=== PATIENT | male | born 1950 | race Caucasian/White ===

== ENCOUNTER 2018-10-24 14:08 | Observation (INO) ==
[2018-10-24] MEDS ORDERED: Ondansetron 4 MG/2 ML VIAL IVP PRN (17:15)
[2018-10-24] MEDS ORDERED: Naloxone 0.4 MG/ML INJ IVP PRN (17:15)
[2018-10-24] MEDS ORDERED: *HR* OxyCODONE Immed Rel 5 MG TABLET PO PRN (17:15)
[2018-10-24] MEDS ORDERED: Acetaminophen 325 MG TABLET PO PRN (17:15)
[2018-10-24] MEDS ORDERED: *HR* HYDROcodone/Acet 5/325 mg TABLET PO PRN (17:15)
--- NOTE | 2018-10-24 17:33 | Internal Med History&Physical ---
Date of Encounter: 10/24/18 Time of Encounter: 16:50 Internal Medicine - H&P: HPI Chief complaint: I was sent here from [facility] Admitted From: Direct Admit Plans for Post Hospital Care: Home History of present illness: Mr. Marley is a 67 year old male past medical history significant for coronary artery disease status post PCI and stenting, hypertension GERD hyperlipidemia who was sent here to be admitted after he presented at [facility] with complaints of acute left flank pain and back pain. According to the subjective information provided today for the admission, the patient has left nephrolithiasis which was diagnosed at [facility] and that the physicians there have contacted the urologist Dr. Soriano. Patient stated that yesterday he felt nauseous and was not quite himself all day and at about 5 AM this morning he was awakened by these acute left flank and back pain which he described as sharp persistent and that the pain subsequently radiated across his entire abdomen has he presented at [facility]. He currently denies any flank or abdominal pain. He denies fever or chills hematuria or prior history of nephrolithiasis. His only complaint during the encounter was being very hungry stating he has been declined eating all day and he is requesting to be fed. Records from [facility] has been requested regarding his visit from yesterday or today Past Med Surg Social Fam HX - Past Medical History Attestation: Yes The following information was validated with the patient. Medical history: coronary artery disease, GERD, hyperlipidemia, hypertension - Past Surgical History Surgical History: angioplasty/stent, appendectomy, arthroscopy Additional surgical history: Excision of the left hand cyst, abdominal surgery for a polypectomy - Social History Smoking Status: Never smoker Smokeless Tobacco Status: No Alcohol use: rarely (quit 1.5 years ago) Current living situation: Home - Independent Activity Level: Independent ambulation - Family History Father Hx Family Neurologic Disorders: Yes (Alzheimer's dementia, stroke) Mother Hx Family Endocrine Disorder: Yes (Diabetes) Internal Medicine - H&P: Meds Allergy/AdvReac Type Severity Reaction Status Date / Time No Known Allergies Allergy Unverified 11/19/14 13:44 All Systems PM: A 10-system review of systems was performed and is negative for pertinent findings except as documented above in the HPI. Review of systems: GENERAL: Denies fever, chills, fatigue or night sweats. DERMATOLOGIC: Denies itch, rash or lesions HEENT: Denies headache, blurriness, diplopia or decreased visual acuity, ear pain, tinnitus, rhinorrhea, sinus tenderness or sore throat RESPIRATORY: Denies SOB, cough, hemoptysis or pleuritic chest pain CARDIOVASCULAR: Denies chest pain, LE edema, palpitation or syncope GASTRO INTESTINAL: Denies cramps, nausea/vomiting, diarrhea or constipation, melena MUSCULOSKELATAL: Denies muscle pain/weakness, joint tenderness/pain or swelling PSYCH: Denies worsening anxiety, or depression NEURO: Denies vertigo, dizziness, or ataxia GENITURINARY: Denies dysuria, nocturia or urinary incontinence - Constitutional Exam: GENERAL: Obese male NAD, A&O x3, pleasant and conversant SKIN: No skin lesions or rashes, non-jaundiced EYES: EOMI, PERRLA, no sclera icterus HENT: Head atraumatic, no facial asymmetry, frontal and maxillary sinus non- tender, normal hearing, oropharynx and mucosa moist and without any exudates NECK: No cervical lymphadenopathy, trachea midline, thyroid is palpable does not appear enlarged LUNGS: vesicular breath sounds, clear to auscultation, no wheeze, rhonchi, rales or crackles. Non labored respirations HEART: Normal rate and rhythm, no murmurs or rubs ABDOMEN: soft, non-tender, non-distended, bowel sounds x 4 normoactive, no costovertebral angle tenderness EXTRMITIES: No LE asymmetry, No LE edema, pedal pulses 1+ and radial pulses 2 + and equal bilaterally NEURO: Speech and comprehension appears intact. . PSYCH: Cooperative, non- anxious or irritable, mood and affect is appropriate - Assessment and Plan (1) Left nephrolithiasis Current Visit: Yes Status: Acute Assessment and plan: Per information provided by the patient he was diagnosed with left nephrolithiasis at [facility]. He denies any hematuria fevers or chills. Currently denies any pain physical exam was unrevealing with no costovertebral angle tenderness. We will obtain a UA and attempt to request records from [facility], before any further diagnostic imaging is performed. Per parikh bjective information the urology is Dr. Soriano has been notified by the physicians from [facility]. will place a courtesy consult. Patient is requesting to be fed. He has been denied food all day. We will make nothing by mouth after midnight for possible urological intervention tomorrow (2) CAD (coronary artery disease) Current Visit: Yes Status: Acute Assessment and plan: Currently denies any chest pain once his med rec is done we will continue home medication Qualifiers: Coronary Disease-Associated Artery/Lesion type: [place] artery Associated angina: without angina Qualified Code(s): I25.10 - Atherosclerotic heart disease of [place] coronary artery without angina pectoris (3) Hyperlipidemia Current Visit: Yes Status: Acute Assessment and plan: We will resume home statin therapy once med rec is done Qualifiers: Hyperlipidemia type: mixed hyperlipidemia Qualified Code(s): E78.2 - Mixed hyperlipidemia (4) GERD (gastroesophageal reflux disease) Current Visit: Yes Status: Acute Assessment and plan: We will resume home PPI therapy once med rec is done Qualifiers: Esophagitis presence: without esophagitis Qualified Code(s): K21.9 - Gastro-esophageal reflux disease without esophagitis (5) Hypertension Current Visit: Yes Status: Acute Assessment and plan: We will monitor vitals every 4 and resume home antihypertensive med rec is done Qualifiers: Hypertension type: essential hypertension Qualified Code(s): I10 - Essential (primary) hypertension (6) DVT prophylaxis Current Visit: Yes Status: Acute Assessment and plan: SCDs since patient might be considered for urological intervention - Time Spent With Patient Total time spent is greater than 50% in coordination of care (as documented) at patient's floor/unit and/or counseling patient:45 mins
[2018-10-24] MEDS: Ringers Solution, Lactated 1,000 ML IVC SCH (18:03)
[2018-10-24 18:05] LABS: Basophils % 0.1 %; Eosinophils % 0.2 %; Hematocrit 43.1 % (37.5-50.1); Hemoglobin 14.2 g/dL (12.9-16.9); Immature Granulocytes % 0.3 % (0-4); Lymphocytes # 1.5 K/mcL (0.6-4.6); Mean Corpuscular HGB Conc 32.9 g/dL (31.6-35.5); Mean Corpuscular Hemoglobin 27.3 pg (28.0-33.3); Mean Corpuscular Volume 82.7 fL (83.0-100.0); Mean Platelet Volume 10.6 fL (9.4-12.4); Monocytes # 0.9 K/mcL (0.0-1.3); Monocytes % 9.5 %; Neutrophils # 7.2 K/mcL (1.6-8.9); Platelet Count 294 K/mcL (140-400); Red Blood Count 5.21 M/mcL (4.19-5.50); Red Cell Distribution Width 13.2 % (11.5-14.5); Segmented Neutrophils % 74.9 %; White Blood Count 9.6 K/mcL (4.3-11.1)
[2018-10-24 18:12] LABS: INR 1.1; Prothrombin Time 12.7 Seconds (9.4-12.1)
[2018-10-24 18:24] LABS: BUN/Creatinine Ratio 13 (6-26); Blood Urea Nitrogen 13 mg/dL (8-23); Calcium 9.2 mg/dL (8.6-10.3); Carbon Dioxide 29 mEq/L (23-29); Chloride 100 mEq/L (98-107); Glucose 104 mg/dL (70-105); Osmolality,Calculated 282 (280-300); Potassium 3.9 mEq/L (3.5-5.1); Sodium 136 mEq/L (136-145); eGFR For African Americans > 60 (> 60); eGFR For Non-African Americans > 60 (> 60)
[2018-10-24 21:13] LABS: Bilirubin,Urine Small (Negative); Blood,Urine Large (Negative); Clarity,Urine Clear (Clear); Color,Urine Dark Yellow (Yellow); Glucose,Urine (UA) Normal (Normal); Ketones,Urine Negative (Negative); Leukocyte Esterase,Urine Trace (Negative); Nitrite,Urine Negative (Negative); PH,Urine 5.5 pH Units (5.0-8.0); Protein,Urine 30 mg/dL (Neg-Trace); Specific Gravity,Urine > 1.030 (1.010-1.025); Urobilinogen,Urine Normal (Normal)
[2018-10-24 21:20] LABS: Bacteria,Urine None Seen per hpf (None-Few); Hyaline Casts,Urine None Seen per lpf (None-Few); RBC,Urine TNTC per hpf (0-3); Squamous Epithelial Cell,Urine Many per lpf (None-Few); WBC,Urine 15-30 per hpf (0-3)
--- NOTE | 2018-10-24 22:31 | Urology - Consult Note ---
Date of Encounter: 10/24/18 Time of Encounter: 22:29 - Assessment and Plan (1) Hydronephrosis Current Visit: Yes Status: Acute Assessment and plan: Interim pain due to left hydronephrosis. Currently pain-free. Patient is not passed stones. Discussed option for management. Plan: Add on for ureteroscopy laser lithotripsy with stenting tomorrow if stone has not passed spontaneously overnight. Qualifiers: Hydronephrosis type: unspecified Qualified Code(s): N13.30 - Unspecified hydronephrosis (2) Left ureteral calculus Current Visit: Yes Status: Acute Assessment and plan: This is the patient's first episode of nephrolithiasis. Onset of pain within the last 36 hours. Pain intermittent. Severe pain at local ER thus transferred here for further evaluation and management. Patient pain-free at this time. Is not toxic. Urine is without sign of infection. Has no white count. He has no fevers. Plan: Ureteroscopy laser lithotripsy of stone is not passed overnight with oral and IV hydration. Urology CN:HPI Consult date: 10/24/18 Reason for consult Urology: Hydronephrosis Requesting physician: Adrian Anderson History of present illness: Mr. Marley is a 67 year old male past medical history significant for coronary artery disease status post PCI and stenting, hypertension GERD hyperlipidemia who was sent here to be admitted after he presented at [facility] with complaints of acute left flank pain and back pain. According to the subjective information provided today for the admission, the patient has left nephrolithiasis which was diagnosed at [facility] and that the physicians there have contacted the urologist Dr. Soriano. Patient stated that yesterday he felt nauseous and was not quite himself all day and at about 5 AM this morning he was awakened by these acute left flank and back pain which he described as sh carlos persistent and that the pain subsequently radiated across his entire abdomen has he presented at [facility]. He currently denies any flank or abdominal pain. He denies fever or chills hematuria or prior history of nephrolithiasis. His only complaint during the encounter was being very hungry stating he has been declined eating all day and he is requesting to be fed. Records from [facility] has been requested regarding his visit from yesterday or today Past Med Surg Social Fam HX - Past Medical History Medical history: coronary artery disease, GERD, hyperlipidemia, hypertension Additional medical history: back pain - Past Surgical History Surgical History: angioplasty/stent, appendectomy, arthroscopy Additional surgical history: Excision of the left hand cyst, abdominal surgery for a polypectomy - Social History Smoking Status: Never smoker Smokeless Tobacco Status: No Alcohol use: rarely (quit 1.5 years ago) Drug use: none - Family History Father Hx Family Neurologic Disorders: Yes (Alzheimer's dementia, stroke) Mother Hx Family Endocrine Disorder: Yes (Diabetes) Medications and Allergies Allergy/AdvReac Type Severity Reaction Status Date / Time No Known Allergies Allergy Unverified 11/19/14 13:44 Review of Systems - Constitutional no chills, no fever(s) - EENT Nose, mouth and throat: no dizziness, no headache(s) - Cardiovascular no chest pain, no diaphoresis, no leg edema - Respiratory no cough, no dyspnea - Gastrointestinal abdominal pain, no vomiting - Genitourinary no flank pain, no urinary urgency - Musculoskeletal no back pain, no muscle weakness - Integumentary no lesions, no rash - Neurological no confusion, no sensory deficit - Psychiatric no anxiety, no confusion - Hematologic/Lymphatic no easy bleeding, no easy bruising - Allergic/Immunologic no throat swelling, no wheezing Exam Initial Vital Signs Temp Pulse Resp BP Pulse Ox 98.3 F 72 18 125/75 94 10/24/18 19:09 10/24/18 19:09 10/24/18 19:09 10/24/18 19:09 10/24/18 19:09 - General physical appearance Present: well developed, well nourished, no distress - Eyes Present: normal ocular movement. Absent: icteric - ENT Present: normal nares, normal mucosa - Neck Present: trachea midline - Respiratory Present: normal respiratory effort - Integumentary Present: no rash, no growths - Neurologic Present: normal coordination. Absent: disoriented, confused - Musculoskeletal Present: other (Moves upper and lower strength ease bilaterally) Urology Results - Labs 10/24/18 17:42 10/24/18 17:23 Abnormal lab results MCV 82.7 fL (83.0-100.0) L 10/24/18 17:42 MCH 27.3 pg (28.0-33.3) L 10/24/18 17:42 PT 12.7 Seconds (9.4-12.1) H 10/24/18 17:42 Magnesium 1.2 mg/dL (1.6-2.6) L 10/24/18 17:15 Ur Specific [place] > 1.030 (1.010-1.025) H 10/24/18 20:47 Urine Protein 30 mg/dL (Neg-Trace) H 10/24/18 20:47 Urine Blood Large (Negative) H 10/24/18 20:47 Urine Bilirubin Small (Negative) H 10/24/18 20:47 Ur Leukocyte Esterase Trace (Negative) H 10/24/18 20:47 Urine Microscopic RBC TNTC per hpf (0-3) H 10/24/18 20:47 Urine Microscopic WBC 15-30 per hpf (0-3) H 10/24/18 20:47 Ur Squamous Epith Cells Many per lpf (None-Few) H 10/24/18 20:47 Ur Culture Indicated? YES (NO) A 10/24/18 20:47 Diabetes panel 10/24/18 Range/Units 17:23 Sodium 136 (136-145) mEq/L Potassium 3.9 (3.5-5.1) mEq/L Chloride 100 (98-107) mEq/L Carbon Dioxide 29 (23-29) mEq/L BUN 13 (8-23) mg/dL Creatinine 0.98 (0.70-1.30) mg/dL Glucose 104 (70-105) mg/dL Calcium 9.2 (8.6-10.3) mg/dL Calcium panel 10/24/18 Range/Units 17:23 Calcium 9.2 (8.6-10.3) mg/dL Pituitary panel 10/24/18 Range/Units 17:23 Sodium 136 (136-145) mEq/L Potassium 3.9 (3.5-5.1) mEq/L Chloride 100 (98-107) mEq/L Carbon Dioxide 29 (23-29) mEq/L BUN 13 (8-23) mg/dL Creatinine 0.98 (0.70-1.30) mg/dL Glucose 104 (70-105) mg/dL Calcium 9.2 (8.6-10.3) mg/dL Adrenal panel 10/24/18 Range/Units 17:23 Sodium 136 (136-145) mEq/L Potassium 3.9 (3.5-5.1) mEq/L Chloride 100 (98-107) mEq/L Carbon Dioxide 29 (23-29) mEq/L BUN 13 (8-23) mg/dL Creatinine 0.98 (0.70-1.30) mg/dL Glucose 104 (70-105) mg/dL Calcium 9.2 (8.6-10.3) mg/dL All other labs normal. - Imaging CT scan - abdomen: image reviewed CT scan - pelvis: image reviewed (Images reviewed and interpreted independently) Consult Discharge Plan - Plan Referrals: Lucretia Odonnell MD [Primary Care Provider] -
[2018-10-25 04:37] LABS: Basophils % 0.1 %; Eosinophils # 0.1 K/mcL (0.0-0.6); Eosinophils % 0.7 %; Immature Granulocytes % 0.4 % (0-4); Lymphocytes # 1.4 K/mcL (0.6-4.6); Lymphocytes % 17.3 %; Mean Corpuscular HGB Conc 32.2 g/dL (31.6-35.5); Mean Corpuscular Hemoglobin 26.7 pg (28.0-33.3); Mean Corpuscular Volume 82.9 fL (83.0-100.0); Mean Platelet Volume 10.1 fL (9.4-12.4); Monocytes % 12.3 %; Neutrophils # 5.7 K/mcL (1.6-8.9); Platelet Count 201 K/mcL (140-400); Red Blood Count 4.34 M/mcL (4.19-5.50); Red Cell Distribution Width 13.2 % (11.5-14.5); Segmented Neutrophils % 69.2 %; White Blood Count 8.2 K/mcL (4.3-11.1)
[2018-10-25 04:38] LABS: Hemoglobin 11.6 g/dL (12.9-16.9)
[2018-10-25] MEDS: Ringers Solution, Lactated 1,000 ML IVC SCH (04:42)
[2018-10-25 04:57] LABS: BUN/Creatinine Ratio 19 (6-26); Blood Urea Nitrogen 16 mg/dL (8-23); Calcium 8.9 mg/dL (8.6-10.3); Carbon Dioxide 30 mEq/L (23-29); Chloride 103 mEq/L (98-107); Glucose 121 mg/dL (70-105); Magnesium 1.7 mg/dL (1.6-2.6); Osmolality,Calculated 288 (280-300); Potassium 3.7 mEq/L (3.5-5.1); Sodium 138 mEq/L (136-145); eGFR For African Americans > 60 (> 60); eGFR For Non-African Americans > 60 (> 60)
[2018-10-25] MEDS ORDERED: *HR* Metoprolol 5 MG/5 ML VIAL IVP STA (10:30)
--- NOTE | 2018-10-25 10:31 | Urology Progress Note ---
<Jes Claire N - Last Filed: 10/25/18 13:36> Date of Encounter: 10/25/18 Time of Encounter: 09:40 - Assessment and Plan (1) Hydronephrosis Current Visit: Yes Status: Acute Qualifiers: Hydronephrosis type: unspecified Qualified Code(s): N13.30 - Unspecified hydronephrosis (2) Left ureteral calculus Current Visit: Yes Status: Acute Assessment and plan: Patient is a 67-year-old male who presents with left ureteral calculi and hydronephrosis. We discussed surgical risks and benefits, and patient verbalized understanding. Patient signed consent and he is prepared undergo a left ureteroscopic stone extraction with holmium laser lithotripsy, basket retrieval, left atrial pyelogram and left ureteral stent placement with Dr. Soriano. Patient remain nothing by mouth. Progress Note Subjective: no new complaints, feels better Narrative: Patient seen and examined sitting upright in bed in no apparent distress. Sheri ent reports he is voiding well without difficulty. Patient states pain is well- controlled, and he is unsure if he's passed any stone fragments. Objective Initial Vital Signs Temp Pulse Resp BP Pulse Ox 98.3 F 72 18 125/75 94 10/24/18 19:09 10/24/18 19:09 10/24/18 19:09 10/24/18 19:09 10/24/18 19:09 - General physical appearance Present: no distress, no pain - Respiratory Present: normal expansion, normal respiratory effort - Abdomen Present: soft, non tender. Absent: distended - Integumentary Present: no rash, no abnormal pigmentation - Musculoskeletal Present: normal posture - Psychiatric Present: oriented to time, oriented to person, oriented to place, speech is nor mal, memory intact - Labs 10/25/18 04:18 10/25/18 04:18 Diabetes panel 10/24/18 10/25/18 Range/Units 17:23 04:18 Sodium 136 138 (136-145) mEq/L Potassium 3.9 3.7 (3.5-5.1) mEq/L Chloride 100 103 (98-107) mEq/L Carbon Dioxide 29 30 H (23-29) mEq/L BUN 13 16 (8-23) mg/dL Creatinine 0.98 0.84 (0.70-1.30) mg/dL Glucose 104 121 H (70-105) mg/dL Calcium 9.2 8.9 (8.6-10.3) mg/dL Calcium panel 10/24/18 10/25/18 Range/Units 17:23 04:18 Calcium 9.2 8.9 (8.6-10.3) mg/dL Pituitary panel 10/24/18 10/25/18 Range/Units 17:23 04:18 Sodium 136 138 (136-145) mEq/L Potassium 3.9 3.7 (3.5-5.1) mEq/L Chloride 100 103 (98-107) mEq/L Carbon Dioxide 29 30 H (23-29) mEq/L BUN 13 16 (8-23) mg/dL Creatinine 0.98 0.84 (0.70-1.30) mg/dL Glucose 104 121 H (70-105) mg/dL Calcium 9.2 8.9 (8.6-10.3) mg/dL Adrenal panel 10/24/18 10/25/18 Range/Units 17:23 04:18 Sodium 136 138 (136-145) mEq/L Potassium 3.9 3.7 (3.5-5.1) mEq/L Chloride 100 103 (98-107) mEq/L Carbon Dioxide 29 30 H (23-29) mEq/L BUN 13 16 (8-23) mg/dL Creatinine 0.98 0.84 (0.70-1.30) mg/dL Glucose 104 121 H (70-105) mg/dL Calcium 9.2 8.9 (8.6-10.3) mg/dL Consult Discharge Plan - Plan Referrals: Lucretia Odonnell MD [Primary Care Provider] - <Aleksandr Soriano - Last Filed: 10/25/18 13:55> Date of Encounter: 10/25/18 - Assessment and Plan (1) Hydronephrosis Current Visit: Yes Status: Acute Qualifiers: Hydronephrosis type: unspecified Qualified Code(s): N13.30 - Unspecified hydronephrosis (2) Left ureteral calculus Current Visit: Yes Status: Acute Assessment and plan: Patient seen and examined independently. I am in agreement with the assessment and plan as outlined by our Urologic Surgery Department Physician [employer], Alethea. Discussed risks benefits alternatives of ureteroscopically stone extraction with without laser and stenting. Patient agrees to proceed. Objective Initial Vital Signs Temp Pulse Resp BP Pulse Ox 98.3 F 72 18 125/75 94 10/24/18 19:09 10/24/18 19:09 10/24/18 19:09 10/24/18 19:09 10/24/18 19:09 - Labs 10/25/18 04:18 10/25/18 04:18 Diabetes panel 10/24/18 10/25/18 Range/Units 17:23 04:18 Sodium 136 138 (136-145) mEq/L Potassium 3.9 3.7 (3.5-5.1) mEq/L Chloride 100 103 (98-107) mEq/L Carbon Dioxide 29 30 H (23-29) mEq/L BUN 13 16 (8-23) mg/dL Creatinine 0.98 0.84 (0.70-1.30) mg/dL Glucose 104 121 H (70-105) mg/dL Calcium 9.2 8.9 (8.6-10.3) mg/dL Calcium panel 10/24/18 10/25/18 Range/Units 17:23 04:18 Calcium 9.2 8.9 (8.6-10.3) mg/dL Pituitary panel 10/24/18 10/25/18 Range/Units 17:23 04:18 Sodium 136 138 (136-145) mEq/L Potassium 3.9 3.7 (3.5-5.1) mEq/L Chloride 100 103 (98-107) mEq/L Carbon Dioxide 29 30 H (23-29) mEq/L BUN 13 16 (8-23) mg/dL Creatinine 0.98 0.84 (0.70-1.30) mg/dL Glucose 104 121 H (70-105) mg/dL Calcium 9.2 8.9 (8.6-10.3) mg/dL Adrenal panel 10/24/18 10/25/18 Range/Units 17:23 04:18 Sodium 136 138 (136-145) mEq/L Potassium 3.9 3.7 (3.5-5.1) mEq/L Chloride 100 103 (98-107) mEq/L Carbon Dioxide 29 30 H (23-29) mEq/L BUN 13 16 (8-23) mg/dL Creatinine 0.98 0.84 (0.70-1.30) mg/dL Glucose 104 121 H (70-105) mg/dL Calcium 9.2 8.9 (8.6-10.3) mg/dL
[2018-10-25] MEDS: Aspirin Enteric Coated 81 MG Tablet PO SCH (11:24)
[2018-10-25] MEDS: amLODIPine 5 MG TABLET PO SCH (11:24)
[2018-10-25] MEDS ORDERED: Isovue-300 50 ML VIAL ONE (13:57)
--- NOTE | 2018-10-25 14:21 | Anesthesia Evaluation PreOp ---
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 Any Significant HX Other Medical History: GERD, Other (morbid obesity) Anesthesia History: No Prior Anesthetic Complications Alcohol Use: rarely (former heavy drinker, quit 1.5 years ago) Drug use: none Medications and Allergies Aspirin Enteric Coated [Aspirin EC] 81 mg PO DAILY 10/25/18 [History] Atorvastatin [Lipitor] 80 mg PO HS 10/25/18 [History] Fish Oil 1,000 mg Softgel 1,000 mg PO DAILY 10/25/18 [History] Furosemide [Lasix] 20 mg PO DAILY 10/25/18 [History] Metoprolol Tartrate [Lopressor] 75 mg PO BID 10/25/18 [History] Omeprazole [PriLOSEC] 20 mg PO DAILY 10/25/18 [History] amLODIPine [Norvasc] 2.5 mg PO DAILY 10/25/18 [History] Allergy/AdvReac Type Severity Reaction Status Date / Time No Known Allergies Allergy Unverified 11/19/14 13:44 - Meds/Allergy Pre-op Review Medications Reviewed: Yes Allergies Reviewed: Yes Beta Blockers on Current Med List: Yes (11:20 a.m.) Anesthesia Results - Labs 10/25/18 04:18 10/25/18 04:18 Anesthesia Exam Selected Entries 10/25/18 11:03 Temperature 98.1 F Pulse Rate 77 Respiratory Rate 18 Blood Pressure 145/80 O2 Sat by Pulse Oximetry 95 Weight: 122 kg. BMI 41 NPO (# of Hours): over 8 hours - HEENT Pupil (Motor): Pupils equal Mallampati: II Teeth: Edentulous Oral Opening: Greater than 3 - Cardiac Rhythm: Regular Murmur: None - Pulmonary Breath Sounds: bilateral Clear Respiratory Effort: Symmetrical Anesthesia Assess/Plan ASA Score: 3 Level of consciousness: Cooperative Anesthetic Plan: General Monitoring Plan: Standard Monitors Recovery Plan: PACU (Discussed GA, risks. Agreed to proceed.)
[2018-10-25] MEDS ORDERED: Morphine Sulfate 2 MG/ML SYRINGE IVP PRN (14:23)
[2018-10-25] MEDS ORDERED: Ondansetron 4 MG/2 ML VIAL IVP ONE (14:23)
[2018-10-25] MEDS ORDERED: *HR* OxyCODONE Immed Rel 5 MG TABLET PO PRN (14:23)
[2018-10-25] MEDS ORDERED: *HR* Succinylcholine 200 MG/10 ML VIAL IVP ONE (14:30)
[2018-10-25] MEDS ORDERED: *HR* Propofol 200 MG/20 ML VIAL IVP ONE (14:30)
[2018-10-25] MEDS ORDERED: Lidocaine -MPF 2% 2 ML VIAL ONE (14:30)
[2018-10-25] MEDS ORDERED: *HR* FentaNYL (PF) 100 MCG/2 ML VIAL ONE (14:30)
[2018-10-25] MEDS ORDERED: Lidocaine HCL 4 ML Topical Solution (Laryng-O-Jet Kit Sterile Pak) TP ONE (14:38)
[2018-10-25] MEDS ORDERED: Ondansetron 4 MG/2 ML VIAL ONE (15:01)
[2018-10-25] MEDS ORDERED: Dexamethasone 4 MG/ML VIAL ONE (15:01)
[2018-10-25] MEDS ORDERED: EPHEDrine 50 MG/ML VIAL ONE (15:04)
--- NOTE | 2018-10-25 15:26 | Operative Note ---
Date of procedure: 10/25/18 Pre-op diagnosis: Left ureteral calculus Post-op diagnosis: same Procedure: Cystoscopy, left retrograde ureteral pyelography, left ureteroscopy, left double-J stent placement, left retrograde ureteral pyelography with intraoperative interpretation of radiographic images in real time by surgeon to facilitate procedure. Implants: 6 x 26 left double-J stent Complications: None Anesthesia: GETA Surgeon: Aleksandr Soriano Was there an operator assistant i cementing present: No Estimated blood loss (cc): 2 Specimen: none Condition: stable Disposition: PACU Procedure in Detail: The patient brought to the operating theater placed on table supine position. Patient identified by name and administered a general anesthetic. The patient placed in dorsal lithotomy then prepped and draped in the normal sterile fashion. A cystoscope was inserted into the urethral meatus and advanced toward the bladder under direct visualization. There were no mucosal abnormalities of bladder or urethra. An open-ended catheter was placed the tip of the left ureteral orifice and with gentle injection of contrast a left retrograde ureteropyelogram was performed. Intraoperative interpretation of radial pyelographic images in real time by surgeon revealed some narrowing at the very distal ureter with proximal mild hydroureteronephrosis. Based on these findings ureteroscopy was indicated. Under fluoroscopic guidance a guide wire was advanced into the left renal pelvis. Alongside the Glidewire a rigid ureteroscope was advanced. The distal ureter was very tight required manipulation using both the laser fiber and the Glidewire to advance beyond the very distal ureter there is significant edema manipulation the very distal ureter consistent with recent stone position. No stones were encountered. The mid and proximal ureter was normal. At this point the scope was removed. Over the existing Glidewire a 6 x 26 of the stent was advanced. Once the stent was confirmed in good position the operative procedure was ended.
--- NOTE | 2018-10-25 15:33 | Internal Med Progress Note ---
Hospitalist Progress Note - Encounter Date of Encounter: 10/25/18 Time of Encounter: 11:00 - Subjective Interval History: Mr Marley is status post cystoscopy, left retrograde ureteropyelogram, left Ureteroscopy, left double J stent placement left retrograde ureteral pyelography. GEN: Denies fever, chills or malaise HEENT: Denies headache blurriness, or dysphagia RESP: Denies SOB or cough CV: Denies chest pain or palpitations GI: Denies Nausea, vomiting, diarrhea or constipation Reviewed current in hospital medications with modifications see orders Reviewed Routine labs - Exam Vitals: Temp Pulse Resp BP Pulse Ox 98.1 F 77 18 145/80 95 10/25/18 11:03 10/25/18 11:03 10/25/18 11:03 10/25/18 11:03 10/25/18 11:03 Exam: GEN: Obese male NAD, A&O x 3, Pleasant and conversant SKIN: [place] warm acyanotic not jaundice HEART: RRR with tachycardic, no murmurs LUNGS: CTA no wheeze or crackles, overall non labored ABDOMEN; Soft, non tender or distended, BS x 4 normactive, no costovertebral angle tenderness EXT: No LE edema, Pedal pulses 1+, radial pulses 2+ PSYCH: Mood and affect is appropriate - Assessment and Plan (1) Left nephrolithiasis Current Visit: Yes Status: Acute Assessment and Plan: status post cystoscopy, left retrograde ureteropyelogram, left Ureteroscopy, left double J stent placement left retrograde ureteral pyelography. Plan per urology (2) CAD (coronary artery disease) Current Visit: Yes Status: Acute Assessment and Plan: Currently denies any chest pain, continue aspirin, atorvastatin 80, metoprolol 75 twice a day. He was somewhat tachycardic 2.5 mg of IV metoprolol was administered as he was off his home meds since yesterday (3) Hyperlipidemia Current Visit: Yes Status: Acute Assessment and Plan: Continue Lipitor (4) GERD (gastroesophageal reflux disease) Current Visit: Yes Status: Acute Assessment and Plan: Continue omeprazole (5) Hypertension Current Visit: Yes Status: Acute Assessment and Plan: Continue amlodipine, metoprolol (6) DVT prophylaxis Current Visit: Yes Status: Acute Assessment and Plan: SCDs - Time Spent with Patient Total time spent is greater than 50% in coordination of care (as documented) at patient's floor/unit and/or counseling patient: Internal Medicine: Result - Labs CBC & Chem 7: 10/25/18 04:18 10/25/18 04:18 Labs: Short CBC 10/24/18 10/25/18 Range/Units 17:42 04:18 WBC 9.6 8.2 (4.3-11.1) K/mcL Hgb 14.2 11.6 L D (12.9-16.9) g/dL Hct 43.1 36.0 L (37.5-50.1) % Plt Count 294 201 (140-400) K/mcL Neutrophils # 7.2 5.7 (1.6-8.9) K/mcL BMP 10/24/18 10/25/18 17:23 04:18 Sodium 136 138 Potassium 3.9 3.7 Chloride 100 103 Carbon Dioxide 29 30 H BUN 13 16 Creatinine 0.98 0.84 Glucose 104 121 H Calcium 9.2 8.9 Urine 10/24/18 Range/Units 20:47 Urine Color Dark Yellow (Yellow) Urine Clarity Clear (Clear) Urine pH 5.5 (5.0-8.0) pH Units Ur Specific [place] > 1.030 H (1.010-1.025) Urine Protein 30 H (Neg-Trace) mg/dL Urine Glucose (UA) Normal (Normal) mg/dL - ABG Interpretation ABG results: PT/INR, D-dimer PT 12.7 Seconds (9.4-12.1) H 10/24/18 17:42 Consult Discharge Plan - Plan Referrals: Lucretia Odonnell MD [Primary Care Provider] - (2) CAD (coronary artery disease) Qualifiers: Coronary Disease-Associated Artery/Lesion type: [place] artery Associated angina: without angina Qualified Code(s): I25.10 - Atherosclerotic heart disease of [place] coronary artery without angina pectoris (3) Hyperlipidemia Qualifiers: Hyperlipidemia type: mixed hyperlipidemia Qualified Code(s): E78.2 - Mixed hyperlipidemia (4) GERD (gastroesophageal reflux disease) Qualifiers: Esophagitis presence: without esophagitis Qualified Code(s): K21.9 - Gastro- esophageal reflux disease without esophagitis (5) Hypertension Qualifiers: Hypertension type: essential hypertension Qualified Code(s): I10 - Essential (primary) hypertension
[2018-10-26 07:18] VITALS: BP 128/71
[2018-10-26] MEDS: Aspirin Enteric Coated 81 MG Tablet PO SCH (10:09)
[2018-10-26] MEDS: amLODIPine 5 MG TABLET PO SCH (10:09)
--- NOTE | 2018-10-26 10:13 | Discharge Summary ---
- NOTES TO OUTPATIENT PROVIDER Notes to Outpatient Provider: Posthospital discharge for nephrolithiasis Date of Encounter: 10/26/18 Time of Encounter: 09:45 - Discharge Diagnosis (1) Left nephrolithiasis Priority: Primary Status: Acute Assessment and Plan: status post cystoscopy, left retrograde ureteropyelogram, left Ureteroscopy, left double J stent placement left retrograde ureteral pyelography. will dc today (2) CAD (coronary artery disease) Priority: Secondary Status: Acute Assessment and Plan: Currently denies any chest pain, continue aspirin, atorvastatin 80, metoprolol 75 twice a day. He was somewhat tachycardic 2.5 mg of IV metoprolol was administered as he was off his home meds since yesterday Qualifiers: Coronary Disease-Associated Artery/Lesion type: [place] artery Associated angina: without angina Qualified Code(s): I25.10 - Atherosclerotic heart disease of [place] coronary artery without angina pectoris (3) Hyperlipidemia Priority: Secondary Status: Acute Assessment and Plan: Continue Lipitor Qualifiers: Hyperlipidemia type: mixed hyperlipidemia Qualified Code(s): E78.2 - Mixed hyperlipidemia (4) GERD (gastroesophageal reflux disease) Priority: Secondary Status: Acute Assessment and Plan: Continue omeprazole Qualifiers: Esophagitis presence: without esophagitis Qualified Code(s): K21.9 - Gastro-esophageal reflux disease without esophagitis (5) Hypertension Priority: Secondary Status: Acute Assessment and Plan: Continue amlodipine, metoprolol Qualifiers: Hypertension type: essential hypertension Qualified Code(s): I10 - Essential (primary) hypertension (6) DVT prophylaxis Priority: Secondary Status: Acute Assessment and Plan: SCDs discharged today Hospital course: Mr. Marely is a 67 year old male was hospitalized for left nephrolithiasis he underwent left retro-gradient utero pyelogram and left ureteroscope with left double J stent placement. He is to follow-up with urologist on outpatient Discharge discussed with: patient, family, nurse - Time Spent with Patient Total time spent providing and/or coordinating discharge services: 40 mins Specific discharge activities: Please make sure to keep outpatient follow-up appointment - Discharge Medications Prescriptions: Continued amLODIPine [Norvasc] 2.5 mg PO DAILY Furosemide [Lasix] 20 mg PO DAILY Omeprazole [PriLOSEC] 20 mg PO DAILY Atorvastatin [Lipitor] 80 mg PO HS Aspirin Enteric Coated [Aspirin EC] 81 mg PO DAILY Fish Oil 1,000 mg Softgel 1,000 mg PO DAILY Metoprolol Tartrate [Lopressor] 75 mg PO BID Home Medications: Aspirin Enteric Coated [Aspirin EC] 81 mg PO DAILY 10/25/18 [History] Atorvastatin [Lipitor] 80 mg PO HS 10/25/18 [History] Fish Oil 1,000 mg Softgel 1,000 mg PO DAILY 10/25/18 [History] Furosemide [Lasix] 20 mg PO DAILY 10/25/18 [History] Metoprolol Tartrate [Lopressor] 75 mg PO BID 10/25/18 [History] Omeprazole [PriLOSEC] 20 mg PO DAILY 10/25/18 [History] amLODIPine [Norvasc] 2.5 mg PO DAILY 10/25/18 [History] Allergies/Adverse Reactions: Allergy/AdvReac Type Severity Reaction Status Date / Time No Known Allergies Allergy Unverified 11/19/14 13:44 Date of admission: 10/24/18 16:09 Primary care physician: Lucretia Odonnell MD Consults: 10/24/18 19:37 Consult to Urology [CONS] Stat Consulting Provider: [facility] [place] Reason for Consult: obstructing stones Time Notified: 19:40 Call Completed: Yes Discharging clinician: Adrian Anderson Anticipated date of discharge: 10/26/18 - Constitutional Vitals: Temp Pulse Resp BP Pulse Ox 98.5 F 61 15 128/71 95 10/26/18 10:03 10/26/18 07:00 10/26/18 07:00 10/26/18 07:00 10/26/18 07:00 Exam: GEN: NAD, A&O x 3, Pleasant and conversant SKIN: [place] warm acyanotic not jaundice HEART: RRR, no murmurs LUNGS: CTA no wheeze or crackles, overall non labored ABDOMEN; Soft, non tender or distended, BS x 4 normactive EXT: No LE edema, Pedal pulses 1+, radial pulses 2+ PSYCH: Mood and affect is appropriate - Patient Status Disposition: Home, Self-Care Condition: Good Functional capacity at discharge: independent ambulation Overall status at discharge: patient is back to baseline - Discharge Instructions Follow Up With: Aleksandr Soriano [Partnered Physician] - Lucretia Odonnell MD [Primary Care Provider] - - Diet and Activity Activity: resume usual activities as tolerated Diet: low fat, low cholesterol, low salt diet
[2018-10-26 10:15] LABS: Basophils % 0.1 %; Eosinophils % 0.2 %; Hematocrit 38.9 % (37.5-50.1); Hemoglobin 12.7 g/dL (12.9-16.9); Immature Granulocytes % 0.5 % (0-4); Lymphocytes # 1.4 K/mcL (0.6-4.6); Lymphocytes % 13.2 %; Mean Corpuscular HGB Conc 32.6 g/dL (31.6-35.5); Mean Corpuscular Hemoglobin 26.7 pg (28.0-33.3); Mean Corpuscular Volume 81.9 fL (83.0-100.0); Mean Platelet Volume 10.4 fL (9.4-12.4); Monocytes # 0.8 K/mcL (0.0-1.3); Monocytes % 7.6 %; Neutrophils # 8.1 K/mcL (1.6-8.9); Platelet Count 246 K/mcL (140-400); Red Blood Count 4.75 M/mcL (4.19-5.50); Red Cell Distribution Width 13.2 % (11.5-14.5); Segmented Neutrophils % 78.4 %; White Blood Count 10.3 K/mcL (4.3-11.1)
[2018-10-26 10:28] LABS: BUN/Creatinine Ratio 19 (6-26); Blood Urea Nitrogen 16 mg/dL (8-23); Calcium 9.5 mg/dL (8.6-10.3); Carbon Dioxide 30 mEq/L (23-29); Chloride 100 mEq/L (98-107); Glucose 148 mg/dL (70-105); Magnesium 1.7 mg/dL (1.6-2.6); Osmolality,Calculated 288 (280-300); Potassium 3.9 mEq/L (3.5-5.1); Sodium 137 mEq/L (136-145); eGFR For African Americans > 60 (> 60); eGFR For Non-African Americans > 60 (> 60)
[2018-10-27] MEDS ORDERED: Furosemide 20 MG TABLET PO SCH (09:00)
== END 2018-10-26 12:19 | disposition home or self-care (01) ==
LOC: 3ANU → SUATTDRO 16:09
PROVIDERS: ADMIT Pharmacist; ATTEND Pharmacist